=== PATIENT | female | born 1985 | race Caucasian/White ===

== ENCOUNTER 2017-04-30 00:07 | Inpatient (IN) | payer OTHER ==
[~2017-04-30] VITALS: Ht 152.4 cm; Wt 82.6 kg
[2017-04-30] MEDS ORDERED: Lactated Ringer's 1,000 ML IV PRN (19:47)
[2017-04-30] MEDS ORDERED: Sodium Chloride LOK Flush 10 mL Syringe IVFLUSH PRN (19:50)
[2017-04-30] MEDS ORDERED: Methylergonovine 0.2 mg/mL Inj IM PRN (19:50)
[2017-04-30] MEDS ORDERED: Oxytocin 30 Units/500 mL LR 30 UNITS in IV Premix 1 EACH IV PRN (19:50)
[2017-04-30] MEDS ORDERED: Hemorrhage Kit, Post Partum XX ONE (19:50)
[2017-04-30] MEDS ORDERED: Carboprost 250 mCg/mL Inj IM PRN (19:50)
[2017-04-30] MEDS ORDERED: Oxytocin 10 Unit/mL Inj IM PRN (19:50)
[2017-04-30 21:14] LABS: Mean Corpuscular Hemoglobin 28.9 pg (27.0-35.0); Mean Corpuscular Volume 85.8 fL (81-100)
[2017-04-30] MEDS ORDERED: PREN-107 PO (23:18)
[2017-04-30] MEDS ORDERED: RANI150C4 PO (23:18)
[2017-04-30] MEDS ORDERED: ACYC200C PO (23:18)
[2017-05-01] MEDS ORDERED: Lactated Ringer's 1,000 ML IV ONE (09:50)
[2017-05-01] MEDS ORDERED: Oxytocin 30 Units/500 mL LR 30 UNITS in IV Premix 1 EACH IV PRN (09:50)
[2017-05-01] MEDS: Misoprostol 25 mCg/0.25 Tablet VAGINAL SCH ×2 (11:13→14:38)
--- NOTE | 2017-05-02 00:40 | DIS ---
[address] [address] DISCHARGE SUMMARY PATIENT: GOMEZ MENDES : 1985 MR#: [id number] ADMIT: 04/30/2017 JOB ID: [id number] DIS: 05/01/2017 DATE: 05/01/2017 [facility] NOTE: The patient was admitted to [facility] at 39-1/2 weeks of gestation for cervical ripening/labor induction in the setting of -induced hypertension (versus borderline and gradually increasing chronic hypertension) at term. The patient was first given Cervidil overnight on April 30, 2017, and carried into May 01, 2017, with little uterine contraction response and no obvious cervical change. Subsequent Cytotec administration was provided with a couple doses on May 01, 2017, with some mild uterine contractions occurring and perhaps a little bit of effacement per nurse serial exams, although no dramatic change. I had a thorough discussion with the patient in regard to term with gradually increasing blood pressure. Blood pressure was borderline elevated at times during the ripening/induction process effort, yet no worrisome readings were recorded, no antihypertensive medication was required, and note that heart tracing was excellent throughout. I gave the patient options of continuing on with induction effort, although more recommended would be going home for 24 hours, and then returning for repeat labor induction effort probably with Cytotec initiation initially, to be followed by Pitocin and artificial rupture of membranes if feasible, beginning on May 02, 2017 p.m. and carry over into May 03, 2017. The patient was agreeable to going home and returning, to stay at rest, and to return if needed, labor precautions given. IMPRESSION: A 39 and 5/7 week gestation with failed cervical ripening/labor induction, for discharge, although to soon return on May 02, 2017, for repeat cervical ripening/labor induction effort in the setting of -induced hypertension (versus borderline chronic hypertension). PLAN: Return thus on May 02, 2017, at 19:00 hour for repeat cervical ripening, likely via Cytotec for a few doses, then hopefully artificial rupture of membranes and Pitocin therapy. Time will tell if this is effective. Discussed benefits and risks, and pros and cons.
--- NOTE | 2017-05-02 00:42 | DIS ---
[address] [address] DISCHARGE SUMMARY PATIENT: GOMEZ MENDES : 1985 MR#: [id number] ADMIT: 04/30/2017 JOB ID: [id number] DIS: 05/01/2017 DISCHARGE DIAGNOSES: 1. at 39 and 5/7 weeks, undelivered. 2. -induced hypertension versus borderline chronic hypertension. 3. Failed labor induction. PROCEDURES PERFORMED DURING HOSPITALIZATION: Cervical ripening/labor induction efforts. HOSPITAL COURSE: The patient was admitted to [facility] on April 30, 2017 for cervical ripening/labor induction in the setting of -induced hypertension/borderline chronic hypertension. In spite of Cervidil and then Cytotec, ripening/induction efforts were unsuccessful after almost 24 hours. Fortunately, blood pressure was not a major concern during hospitalization and heart tracing was excellent. After a full discussion with the patient, it was determined reasonable to send the patient home and then return in 24 plus hours for cervical ripening/labor induction efforts again. The patient was asked to stay mostly at bed rest during her time at home and then, after admit re-admission on May 02, 2017, to probably consider Cytotec administration 25 mcg every three hours for three doses and then to consider Pitocin initiation and artificial rupture of membranes and placement of an intrauterine pressure catheter when possible. I have discussed these things with the patient. She and her understand. DISCHARGE PROGRAM: The patient will call p.r.n. Otherwise, she will return to the hospital in the evening at 7 p.m. on May 02, 2017 for repeat cervical ripening/labor induction efforts in the setting of -induced hypertension (or borderline chronic hypertension).
--- NOTE | 2017-05-02 00:46 | PROG NOTE ---
[address] [address] PROGRESS NOTE PATIENT: GOMEZ MENDES : 1985 MR#: [id number] ADMIT: 04/30/2017 JOB ID: [id number] [facility] NOTE: DATE: 04/30/2017, 2000 hour. SUBJECTIVE: The patient is a 32-year-old AB0, woman, followed prenatally at [facility], see record. Due date is May 03, 2017. Note that the patient has had some borderline to mild blood pressure elevations during , yet recently blood pressures have been increasing somewhat up to 143 systolic and up to 90 range diastolic. -induced hypertension is thus a possibility, or low-grade smoldering chronic hypertension, no antihypertensive medications required yet at this point. I discussed with the patient the option of bringing her in for cervical ripening/labor induction as now at term and with blood pressures gradually increasing including little bit higher once outside the medical office. The patient was agreeable and was thus admitted to [facility] in the evening of April 30, 2017, for cervical ripening/labor induction. Note that a side benefit also thought to potentially be present would be to deliver in that fundal height is quite large, although recent ultrasound demonstrated appropriate estimated gestational age/estimated weight. The patient understood benefits and risks, pros and cons of labor induction, and she signed informed consent for the procedure. Note that she understood that there is not a guarantee that induction process would be effective, and some people go home undelivered. PHYSICAL EXAMINATION: On admission, weight 183 pounds. Blood pressure 130/80 (at home recently, 130-143/86-90 range), height 60 inches. Neck: No thyromegaly. Lungs: Clear to auscultation and percussion. Heart: Regular in rate and rhythm. Abdomen: Fundal height 43.5 cm. Positive heartbeat. Vertex presentation. Pelvic examination: Cervix 1.5 (2) cm dilated, 40% effaced. Vertex presentation. IMPRESSION: 1. A 39-4/7 weeks , for labor induction primarily in the setting of -induced hypertension versus borderline chronic hypertension, no specific evidence for preeclampsia. 2. See record for additional diagnoses. PLAN: 1. Admission for cervical ripening/labor induction on May 30, 2017. 2. Likely Cervidil therapy to be undertaken initially for cervical ripening. 3. Preeclampsia lab work obtained on admission.
== END 2017-05-01 18:02 | disposition home or self-care (01) | DRG 782 ==
LOC: FBC 18:50
PROVIDERS: ADMIT Obstetrics & Gynecology; ATTEND Obstetrics & Gynecology
PROC: 3E033VJ Introduction of Other Hormone into Peripheral Vein, Percutaneous Approach (ICD-10-PCS; principal; 2017-04-30)
DX: O13.3 Gestational [pregnancy-induced] hypertension without significant proteinuria, third trimester (principal); O62.0 Primary inadequate contractions; Z3A.39 39 weeks gestation of pregnancy

== ENCOUNTER 2017-05-02 01:04 | Inpatient (IN) | payer OTHER ==
[~2017-05-02] VITALS: Ht 152.4 cm; Wt 78.5 kg
[~2017-05-02 01:04] MED LIST: ACYC200C PO; PREN-107 PO; RANI150C4 PO
[2017-05-02] MEDS ORDERED: Hemorrhage Kit, Post Partum XX ONE (20:00)
[2017-05-02] MEDS ORDERED: Ondansetron 2 mg/mL 2 mL Inj IVPUSH PRN (20:00)
[2017-05-02] MEDS ORDERED: Methylergonovine 0.2 mg/mL Inj IM PRN (20:00)
[2017-05-02] MEDS ORDERED: fentaNYL-PF 50 mCg/mL 2 mL Inj IVPUSH PRN (20:00)
[2017-05-02] MEDS ORDERED: Carboprost 250 mCg/mL Inj IM PRN (20:00)
[2017-05-02] MEDS ORDERED: Oxytocin 10 Unit/mL Inj IM PRN (20:00)
[2017-05-02] MEDS ORDERED: Sodium Chloride LOK Flush 10 mL Syringe IVFLUSH PRN (20:00)
[2017-05-02] MEDS ORDERED: Oxytocin 30 Units/500 mL LR 30 UNITS in IV Premix 1 EACH IV PRN (20:00)
[2017-05-02] MEDS: Misoprostol 25 mCg/0.25 Tablet VAGINAL SCH ×2 (20:22→23:18)
[2017-05-02 20:43] LABS: Mean Corpuscular Hemoglobin 28.4 pg (27.0-35.0); Mean Corpuscular Volume 86.2 fL (81-100)
[2017-05-02] MEDS: Acyclovir 400 mg Tablet PO SCH (22:13)
[2017-05-03] MEDS: Misoprostol 25 mCg/0.25 Tablet VAGINAL SCH (02:22)
[2017-05-03] MEDS ORDERED: Oxytocin 30 Units/500 mL LR 30 UNITS in IV Premix 1 EACH IV PRN ×2 (05:40→16:55)
[2017-05-03] MEDS: Lactated Ringer's 1,000 ML IV PRN ×2 (06:16→10:38)
[2017-05-03] MEDS ORDERED: fentaNYL 2 mCg/mL-Bupivicaine 0.125% 100 mL Premix EPIDURAL ONE (11:32)
[2017-05-03] MEDS ORDERED: Lactated Ringer's 500 ML IV ONE (11:51)
[2017-05-03] MEDS ORDERED: Lactated Ringer's 1,000 ML IV SCH ×2 (11:51→16:52)
--- NOTE | 2017-05-03 11:51 | PCM.HPANE ---
Patient Data Surgeon Admitting Provider:Garland Etienne MD Attending Provider:Garland Etienne MD Primary Care Physician:Garland Etienne MD Other Provider:Ricarda Salazar Anesthesia Reason for Visit Induction INDUCTION Ht/WT & BMI Body Mass Index Allergies Coded Allergies: latex (Verified Allergy, Unknown, 04/30/17) Past Anesthesia History Anesthesia History: Denies:: Abnormal Airway, Anesthesia Reactions, Difficult Intubation, Fam Anesthesia Reaction, Fam Malignant Hypertherm, Malignant Hyperthermia Diabetes History Hx Diabetes?: No MRSA MRSA: No Medications Hypertension Medication: No Home Meds Incl Beta Maggy: No Reported Medications Ranitidine 150 Mg [id number] Mg PO BID Ref 0 04/30/17 Acyclovir 200 Mg [id number] Mg PO TID Ref 0 04/30/17 Vit37/Iron/Folic Acid (P[place]ata Chewable Tablet)1 Each Tab.chew1 Each PO BID 04/30/17 History History of ENT Problems?: No HEENT History: Denies:: Abnormal Airway Cataracts Difficult Intubation Dysphagia Glaucoma Hearing Problem Sinus Problem TMJ Denture Type: None Teeth Condition: Within Normal Limits Hx of Heart Problems?: No Cardiovascular History: Denies:: AICD Abdominal Aortic Aneurism Atrial Fibrillation Cardiac Surgery Chest Pain Congestive Heart Failure Coronary Artery Disease Edema Heart Murmur Hypertension Irregular Heartbeat Pacemaker Peripheral Vascular Rheumatic Fever Thrombophlebitis Valvular Heart Disease Hx of Respiratory Problem?: No Respiratory History: Denies:: Asthma COPD Chest Surgery Cough Dyspnea Emphysema Hemoptysis Oxygen Administration Pneumonia Pulmonary Embolism Tuberculosis Use of C-PAP Machine Use of Inhalers / NEBS Hx Neurologic Problems?: No Neurological History: Denies:: Alzheimer's Disease CVA Dementia Dizziness Headaches Multiple Sclerosis Parkinson's Disease Peripheral Neuropathy Seizures TIA Hx of GI Problems?: No Gastrointestinal History: Denies:: Cirrhosis Diverticulitis Gall Bladder Disease Gastroesphageal Reflux Gastrointestinal Bleeding Heartburn Hepatitis Hiatal Hernia Liver Disease Rectal Bleeding Hx of Problems?: No Genitourinary History: Denies:: HX of Hemodialysis Kidney Stones Urinary Tract Infection HX of Peritoneal Dialysis: No Female Hx: Positive for:: Currently Denies:: Endometriosis Pelvic Inflammatory Problems with Breasts? Other History/Comment induction for LGA and PIH, normal platelets Skin History: Denies:: History Skin Disorders? Pressure Ulcers Hx Musculoskeletal Problems?: No Musculoskeletal History: Denies:: Back Injury Degenerative Joint Fibromyalgia Joint Replacement Musculoskeletal Trauma Myasthenia Gravis Osteoarthritis Rheumatoid Arthritis Systemic Lupus Hx of Psycho/Social Problems?: No Psycho Social History: Denies:: Anxiety Bipolar Disorder Hx Depression Suicide Attempt Hx Surgeries?: No Hx Any Other Health Problems?: No Hx Diabetes: No Hx Alcohol Use: NoHx Substance Use: No Smoking Status: Never Smoker Have You Smoked inLast 12 mo: No Stop/Bang Treated for Sleep Apnea?: No Do You Have a CPAP Machine?: No CRISTIANO Risk Assessment: Low Risk, <3 Yes Risk Assessment Category Category 1A: Patient has history of documented sleep apnea, and HAS NOT received any narcotic, sedative or anesthesia administration during this stay. Category 1B: Patient has history of documented sleep apnea, and HAS received any narcotic , sedative or anesthesia administration during this stay Category 2: Patient has SUSPECTED Obstructive Sleep Apnea, and HAS received any narcotic , sedative or anesthesia administration during this stay. Category 3: Patient has SUSPECTED Obstructive Sleep Apnea and HAS NOT received narcotic, sedative or anesthesia administration during this stay. Category 4: Outpatient in Procedural Areas with known sleep apnea or who screen positive for High Risk via the STOP/BANG questionnaire. Exam Exam Vital Signs WNL General Appearance: Alert HEENT/AIRWAY: MP 1 Lungs: Clear to Auscultation Heart: Exam Unremarkable Meds/Labs/Diagnostics Admission Meds Current Medications Misoprostol (Cytotec) 25 mcg Q3H VAGINAL Last administered on 05/03/17 02:22; Start 05/02/17 at 20:05; Stop 05/03/17 at 02:06; Status DC Famotidine (Pepcid) 20 mg BID PO Last administered on 05/03/17 05:49; Start at 20:30 Acyclovir (Zovirax) 400 mg HS PO Last administered on 05/02/17 22:13; Start at 21:00 Labs Test 05/02/17 20:20 05/02/17 21:37 White Blood Count 11.5th/mm3 (3.8-10.1) Red Blood Count 4.36mil/mm3 (3.90-5.20) Hemoglobin 12.4g/dL (12.0-15.6) Hematocrit 37.6% (35.0-46.0) Mean Corpuscular Volume 86.2fL (81-100) Mean Corpuscular Hemoglobin 28.4pg (27.0-35.0) Mean Corpuscular Hemoglobin Concent 33.0% (32.0-37.0) Red Cell Distribution Width 14.5% (12.3-15.4) Platelet Count 198bil/L (150-400) Hematology Comments Blood Urea Nitrogen 7mg/dL (6-20) Creatinine 0.52mg/dL (0.57-1.00) Uric Acid 3.4mg/dL (2.6-7.2) Aspartate Amino Transf (AST/SGOT) 23U/L (0-50) Alanine Aminotransferase (ALT/SGPT) 13U/L (0-32) Urine Random Creatinine 81mg/dL (16-392) Urine Random Total Protein 10mg/dL (0-15) Urine Protein/Creatinine Ratio 0.12 (0-200) Plan Impression Patient chart reviewed, patient interviewed and anesthestic plan with risks, benefits, and alternatives discussed, and informed consent obtained. NPO per Anesth. Guidelines: Yes ASA Physical Status: ASA1 Normal Healthy Anesthetic Plan: Epidural Bene/Risks/Altern/Consents: Yes HP Complete Prior to Induction: Yes Andrea Coffey MD May 03, 2017 11:51
[2017-05-03] MEDS ORDERED: Ondansetron 2 mg/mL 2 mL Inj IVPUSH PRN (11:55)
[2017-05-03] MEDS ORDERED: fentaNYL 2 mCg/mL-Bupiv 0.125% 100 ML EPIDURAL SCH (11:55)
[2017-05-03] MEDS ORDERED: fentaNYL-PF 50 mCg/mL 2 mL Inj IVPUSH PRN (11:55)
[2017-05-03] MEDS ORDERED: EPHEDrine Sulfate 50 mg/mL Inj IVPUSH PRN (11:55)
[2017-05-03] MEDS ORDERED: Atropine 1 mg/10 mL (Code) Syringe IVPUSH PRN (11:55)
[2017-05-03] MEDS ORDERED: Sodium Chloride LOK Flush 10 mL Syringe IVFLUSH SCH (16:30)
[2017-05-03] MEDS ORDERED: Hemorrhage Kit, Post Partum XX ONE (16:55)
[2017-05-03] MEDS ORDERED: HYDROcodone-APAP 5-325 mg Tablet PO PRN (16:55)
[2017-05-03] MEDS ORDERED: Measles-Mumps-Rubella Vaccine 0.5 mL Inj SUBQ ONE (16:55)
[2017-05-03] MEDS ORDERED: Influenza (Adult) Vaccine 0.5 mL Syringe IM ONE (16:55)
[2017-05-03] MEDS ORDERED: Witch Hazel-Glycerin Pads TOPICAL PRN (16:55)
[2017-05-03] MEDS ORDERED: Benzocaine (Dermoplast) 20% 60 Gm Spray TOPICAL PRN (16:55)
[2017-05-03] MEDS ORDERED: TdaP Vaccine 0.5 mL Inj IM ONE (16:55)
[2017-05-03] MEDS ORDERED: Carboprost 250 mCg/mL Inj IM PRN (16:55)
[2017-05-03] MEDS ORDERED: Methylergonovine 0.2 mg/mL Inj IM PRN (16:55)
[2017-05-03] MEDS ORDERED: Oxytocin 10 Unit/mL Inj IM PRN (16:55)
[2017-05-03] MEDS ORDERED: LANOlin HPA 7 Gm Ointment TOPICAL PRN (16:55)
--- NOTE | 2017-05-03 19:39 | PROG NOTE ---
[address] [address] PROGRESS NOTE PATIENT: GOMEZ MENDES : 1985 MR#: [id number] ADMIT: 05/02/2017 JOB ID: [id number] DATE: 05/02/2017 TIME: 2000 hours. [facility] INTERVAL NOTE: The patient has been followed prenatally at [facility], see record for details. She was admitted for cervical ripening/labor induction beginning in the evening of April 30, 2017, and carried over into May 01, 2017, all in borderline chronic hypertension. There been no evidence for preeclampsia. The patient did not experience successful ripening/induction on April 30 into May 01, 2017 and thus was sent home with failed induction, although blood pressure was acceptable throughout and heart tracing was good throughout. The patient was sent home to rest for 24 hours and then to return in the evening of May 02, 2017 for cervical ripening/labor induction once again, in the setting of -induced hypertension (versus borderline chronic hypertension). Admission thus on May 02, 2017 has the same indications, anticipating vaginal delivery at term with successful ripening/induction. Please see record and dictated notes from April 30, 2017 and May 01, 2017 for additional details to provide perspective regarding this admission on May 02, 2017.
--- NOTE | 2017-05-03 19:51 | OP ---
[address] [address] OPERATIVE REPORT PATIENT: GOMEZ MENDES : 1985 MR#: [id number] ADMIT: 05/02/2017 JOB ID: [id number] DATE OF SURGERY: 05/03/2017 SURGEON: Garland Etienne MD PREOPERATIVE DIAGNOSIS(ES): POSTOPERATIVE DIAGNOSIS(ES): [facility] NOTE: The patient was admitted to [facility] for the 2nd time this week for cervical ripening/labor induction secondary to -induced hypertension ( chronic hypertension, no preeclampsia). The patient was admitted last evening and she received Cytotec 25 mcg x3 doses overnight and contractions gradually developed and became more intense and I found cervix to be at 3 cm dilatation and 80% effaced this morning. I was able to artificially rupture membranes and clear fluid was recovered. Pitocin therapy was provided following the Cytotec and carried on throughout the day and this, with the artificial rupture of membranes, effected quality labor pattern and the patient requested an epidural for pain management. This was provided. Active phase of labor was relatively rapid and the patient was found to be at 10 cm dilatation. She did an excellent job of pushing and bringing the baby down until ultimately head was . Note that heart tracing was good throughout, with some heart rate drops during the last several minutes of the second stage of labor. There was some variability however and oxygen provided . Baby with then pushed out per patient, head, followed by reduction of double nuchal cord, and then rotation of the shoulders, which then delivered, followed by delivery of the body and the extremities. There was no shoulder dystocia, although it appeared that shoulder rotation from behind the symphysis pubis eased the delivery process. The baby was given directly to mother for bonding and further nurse management and baby did not appear to want to take that first big breath in spite of aggressive stimulation. We concluded thus not to wait for delayed cord clamping, rather we clamped the cord right away and cut, and the nurse walked the baby to the warmer, crying heartily upon arrival. There were thus no concerns anticipated or realized. Cord blood was obtained for routine studies. Placenta with membranes was expelled, intact. Uterus contracted with massage plus intravenous Pitocin infusion somewhat, yet repetitively filled with clots. Ultimately intrauterine evacuation of clots was required on two occasions and 800 mcg of Cytotec was placed rectally and with all these maneuvers bleeding then became minimal. Overall blood loss during the case however was in the 600-700 mL range. Betadine solution was used to cleanse the vulvovaginal region. The only laceration was that of midline second-degree perineal laceration, easily repaired with 3-0 chromic suture in running deep and then more superficial/subcuticular running layer. Hemostasis was noted to be complete and there was no hematoma formation. At this point procedures were complete. Instrument, needle, and sponge counts were correct. Uterine bleeding was minimal. Mother and baby were doing well.
[2017-05-03] MEDS: Acyclovir 400 mg Tablet PO SCH (20:21)
[2017-05-04 07:49] LABS: Mean Corpuscular Hemoglobin 28.5 pg (27.0-35.0); Mean Corpuscular Volume 87.2 fL (81-100)
--- NOTE | 2017-05-04 15:30 | PCM.DIOB ---
Obstetrical Disch Instruction Dates of Hospitalization Date of Hospital Admission May 02, 2017 at 19:00 Providers Admitting Physician: Garland Etienne MD Primary Care Physician: Garland Etienne MD Attending Physician: Garland Etienne MD Discharge Diagnosis Problems: (1) Status: Acute ICD Code: Z33.1 (2) High blood pressure affecting in third trimester, antepartum Status: Acute ICD Code: O13.3 Diet Discharge Diet: No restrictions Activity Discharge Activity-General: Pelvic Rest for 6 weeks Dressing and Incisional Care Hygiene: May shower, Perineal care, Sitz bath, Dermoplast spray, Witch Marie pads, Ice Follow Up Plan Follow-up appointment: Weeks (Follow up in 6 weeks at [facility] for Checkup.) Call your provider for: Fever or Chills, Shortness of breath, Red painful breasts Garland Etienne MD May 04, 2017 15:30
[2017-05-04] MEDS ORDERED: HYDR-4003 PO (15:33)
[2017-05-04] MEDS ORDERED: IBUP-1827 PO (15:33)
[2017-05-04] MEDS ORDERED: DOCU-41 PO (15:33)
[2017-05-04 16:53] VITALS: BP 132/79; PULSE 89; RESP 18
--- NOTE | 2017-05-05 19:38 | DIS ---
[address] [address] DISCHARGE SUMMARY PATIENT: GOMEZ MENDES : 1985 MR#: [id number] ADMIT: 05/02/2017 JOB ID: [id number] DIS: 05/04/2017 DISCHARGE DIAGNOSES: 1. Term , delivered. 2. -induced hypertension (versus borderline chronic hypertension). PROCEDURES PERFORMED: 1. Cervical ripening/labor induction. 2. Vaginal delivery. 3. Vaginal repair work. 4. Epidural anesthesia. HOSPITAL COURSE: The patient was admitted to [facility] once again on May 02, 2017 for cervical ripening/labor induction. She had failed cervical ripening/labor induction efforts earlier in the week for -induced hypertension. This time, however, cervical ripening with Cytotec and then Pitocin and artificial rupture membranes ultimately were effective, and the patient delivered baby on May 03, 2017. During the timeframe, patient did well, with stable vitals, afebrile, with reasonable bleeding and pain management, voiding, ambulating, and handling baby well. She was interested in discharge to home on the first day and her request was granted. DISCHARGE PROGRAM: Patient will call p.r.n., yet otherwise will follow up at six weeks for checkup. She will observe pelvic rest for six weeks. DISCHARGE MEDICATIONS: Include ibuprofen and Colace, prescriptions written. She will also continue to use other routine medications at home as needed, including ranitidine, acyclovir prophylaxis, and vitamin, three medicines which patient has a supply of at home.
== END 2017-05-04 17:47 | disposition home or self-care (01) | DRG 775 ==
LOC: FBC 19:00
PROVIDERS: ADMIT Obstetrics & Gynecology; ATTEND Obstetrics & Gynecology
PROC: 10E0XZZ Delivery of Products of Conception, External Approach (ICD-10-PCS; principal; 2017-05-03)
PROC: 0KQM0ZZ Repair Perineum Muscle, Open Approach (ICD-10-PCS; 2017-05-03)
PROC: 10907ZC Drainage of Amniotic Fluid, Therapeutic from Products of Conception, Via Natural or Artificial Opening (ICD-10-PCS; 2017-05-03)
PROC: 3E033VJ Introduction of Other Hormone into Peripheral Vein, Percutaneous Approach (ICD-10-PCS; 2017-05-03)
DX: O70.1 Second degree perineal laceration during delivery (principal); Z37.0 Single live birth; O13.4 Gestational [pregnancy-induced] hypertension without significant proteinuria, complicating childbirth; Z3A.40 40 weeks gestation of pregnancy; O69.82X0 Labor and delivery complicated by other cord entanglement, without compression, not applicable or unspecified